=== PATIENT | female | born 1945 | race Caucasian/White ===

== ENCOUNTER 2017-01-24 09:45 | Emergency (ER) | payer OTHER, MEDICARE ==
[~2017-01-24] VITALS: Ht 162.6 cm; Wt 78.8 kg
[2017-01-24 09:51] VITALS: TEMP 36.5; Ht 162.6 cm; Wt 78.8 kg
--- NOTE | 2017-01-24 10:28 | DIAGNOSTIC IMAGING REPORT ---
CHEST 2 VIEWS ROUTINE CLINICAL HISTORY: cough eval for pnea cough. Pneumonia. COMPARISON STUDY: No previous studies for comparison. FINDINGS: The bones soft tissues and hemidiaphragms are normal. The cardiomediastinal silhouette is normal. The lungs are clear. The pulmonary vasculature is normal. IMPRESSION: Negative chest. Electronically signed by: Reyes Velasco M.D. 01/24/2017 10:26 AM Dictated Date/Time: 01/24/2017 10:26 AM
[2017-01-24 10:41] VITALS: BP 142/81; PULSE 73; O2SAT 95
[2017-01-24] MEDS ORDERED: AZITTAB PO (10:45)
--- NOTE | 2017-01-24 11:09 | EMERGENCY ROOM VISIT NOTE ---
History Report prepared by Bellaibjasmin: Michelle Tong Under the Supervision of: Dr. Collin Cleveland M.D. First contact with patient: 10:03 Chief Complaint: COUGH Stated Complaint: COUGH IN LUNGS X 3+ DAYS History of Present Illness The patient is a 71 year old female who presents to the Emergency Room with complaints of a persistent cough that began 3 days ago. The cough is productive with yellow sputum. She also complains of a subjective fever. She has not noticed much nasal congestion. The patient came to the ED with concerns for pneumonia. She denies chest pain, shortness of breath, vomiting, or other complaints. Source of History: patient Onset: 3 days ago Position: other (global) Quality: other (productive cough) Timing: other (persistent) Associated Symptoms: + fevers (subjective), No SOB, No chest pain, No vomiting Review of Systems See HPI for pertinent positives & negatives. A total of 10 systems reviewed and were otherwise negative. Past Medical & Surgical Medical Problems: (1) Diabetes (2) Hypertension Family History Cancer Heart disease Hypertension Social History Smoking Status: Never Smoker Smokeless Tobacco Use: No Alcohol Use: occasionally Housing Status: lives alone Occupation Status: unemployed Current/Historical Medications Scheduled Azithromycin (Zithromax Z-Ernesto), 1 PKT PO UD Physical Exam Vital Signs Date Time Temp Pulse Resp B/P Pulse Ox O2 Delivery O2 Flow Rate FiO2 01/24/17 10:41 73 20 142/81 95 Room Air 01/24/17 09:51 36.5 81 17 145/75 96 Room Air Physical Exam Constitutional: Vital signs reviewed. Eyes: Pupils are equal round reactive to light. Conjunctiva are noninjected. ENT: Pharynx is clear without erythema or exudate. Mucous membranes are moist. Neck supple without meningeal signs. Respiratory: Clear to auscultation bilaterally. Breath sounds are equal bilaterally. Cardiovascular: Regular rate and rhythm. No rubs or gallops. GI: Soft, nondistended and nontender. Bowel sounds are present. Musculoskeletal: No peripheral edema. No lower extremity tenderness. Integumentary: No cyanosis. Neurological: The patient is awake and alert. No focal deficits. Psychiatric: Normal affect. Medical Decision & Procedures ER Provider Diagnostic Interpretation: Radiology results as stated below per my review and the radiologist's interpretation: CHEST 2 VIEWS ROUTINE CLINICAL HISTORY: cough eval for pnea cough. Pneumonia. COMPARISON STUDY: No previous studies for comparison. FINDINGS: The bones soft tissues and hemidiaphragms are normal. The cardiomediastinal silhouette is normal. The lungs are clear. The pulmonary vasculature is normal. IMPRESSION: Negative chest. Electronically signed by: Reyes Velasco M.D. 01/24/2017 10:26 AM Dictated Date/Time: 01/24/2017 10:26 AM ED Course 1004: The patient was evaluated in room A9. A complete history and physical exam was performed. 1042: I reassessed the patient and talked to her about her x-ray. She agreed with the treatment plan. The patient will be discharged home. Medical Decision This is a 71-year-old female presents with a cough. Differential diagnosis includes URI, pneumonia, bronchitis. I did perform a limited focused review of portions of the patient's old chart on the electronic medical record. The patient has had no prior visits to this hospital. I did evaluate the patient as noted above. The patient is presenting with a three-day history of a productive cough. She denies any other symptoms other than subjective fever. I did order and personally review the patient's chest x- ray as described above. There is no evidence of pneumonia. I did discuss the chest x-ray with the patient. The patient is diabetic and over 65 so I did feel it was reasonable to attempt to treat her with antibiotics. I did have a discussion with the patient and she agreed. She was discharged with a prescription for Zithromax and advised follow with her doctor. Impression Primary Impression: Acute bronchitis Scribe Attestation The scribe's documentation has been prepared under my direct and personally reviewed by me in its entirety. I confirm that the note above accurately reflects all work, treatment, procedures, and medical decision making performed by me. Departure Information Dispostion Home / Self-Care Prescriptions Azithromycin (ZITHROMAX Z-ERNESTO) 250 Mg Tab 1 PKT PO UD for 5 Days, #1 PKT Prov: Collin Cleveland M.D. 01/24/17 Referrals No Doctor, Assigned (PCP) Patient Instructions ED Bronchitis Abx Tx, My [facility] Additional Instructions You have been examined and treated today on an emergency basis only. This is not a substitute for, or an effort to provide, complete comprehensive medical care. It is impossible to recognize and treat all injuries or illnesses in a single emergency department visit. It is therefore important that you follow up closely with your physician. Call as soon as possible for an appointment. Return for worsening symptoms or if you develop fever, vomiting, chest pain, shortness of breath or any other concerning symptoms. Problem Qualifiers Primary Impression: Acute bronchitis Bronchitis organism: unspecified organism Qualified Codes: J20.9 - Acute bronchitis, unspecified
== END 2017-01-24 10:56 | disposition home or self-care (01) ==
LOC: C.EDB 09:48 → C.EDA 10:56
DX: J20.9 Acute bronchitis, unspecified (principal); E11.9 Type 2 diabetes mellitus without complications; I10 Essential (primary) hypertension; Z80.9 Family history of malignant neoplasm, unspecified; Z82.49 Family history of ischemic heart disease and other diseases of the circulatory system